=== PATIENT | male | born 1965 | race Caucasian/White ===

== ENCOUNTER 2022-09-27 14:23 | Emergency (ER) | payer BC, OTHER ==
[2022-09-27] MEDS ORDERED: LIDOCAINE 1% MPF 30 ML VIAL ONE (14:49)
--- NOTE | 2022-09-27 15:01 | EDPHYS ---
Physician Documentation [facility] Name: Russell Nunez Age: 57 yrs Sex: Male : 1965 Arrival Date: 09/27/2022 Time: 14:23 Bed 19 Private MD: ED Physician Matthew Sahu HPI: 09/27 14:50 This 57 yrs old Male presents to ER via Ambulatory with complaints of vericose bleeder. jr8 14:50 Onset: The symptoms/episode began/occurred acutely, today. Associated signs and jr8 symptoms: The patient has no apparent associated signs or symptoms. The patient has not experienced similar symptoms in the past. The patient has not recently seen a physician. Patient stated that he has swelling of the lower extremities often. Noticed that his veins bulge and some of the areas. While at the pool today was walking and nicked the side of his ankle causing immediate bleeding one of the veins. Tried to apply pressure which helped control it but still bleeding.. Historical: - Allergies: 14:39 Iodine; ld1 - PMHx: 14:39 Hypertensive disorder; ld1 - PSHx: 14:39 Right ankle surgery; ld1 - Immunization history:: Adult Immunizations up to date, Client reports receiving the 2nd dose of the Covid vaccine. - Social history:: Smoking status: Patient denies any tobacco usage or history of. Patient uses alcohol, occasionally. ROS: 14:50 Constitutional: Negative for fever, chills, and weight loss, Cardiovascular: Negative jr8 for chest pain, palpitations, and edema, Respiratory: Negative for shortness of breath, cough, wheezing, and pleuritic chest pain, MS/Extremity: Negative for deformity, Skin: Negative for injury, rash, and discoloration. Exam: 14:50 Constitutional: This is a well developed, well nourished patient who is awake, alert, jr8 and in no acute distress. Cardiovascular: Regular rate and rhythm with a normal S1 and S2. No gallops, murmurs, or rubs. Normal PMI, no JVD. No pulse deficits. Respiratory: Lungs have equal breath sounds bilaterally, clear to auscultation and percussion. No rales, rhonchi or wheezes noted. No increased work of breathing, no retractions or nasal flaring. Skin: Warm, dry with normal turgor. Normal color with no rashes, no lesions, and no evidence of cellulitis. Neuro: Awake and alert, GCS 15, oriented to person, place, time, and situation. Motor strength 5/5 in all extremities. Sensory grossly intact. 14:50 Musculoskeletal/extremity: Extremities: grossly normal except: noted in the right leg: Patient has small puncture site where the varicose bleeder is to the right lateral malleolus. When not pressurized has steady bleeding. No other trauma to the leg. Does have mild amount of standing nonpitting edema to the lower extremities bilaterally, ROM: no acute changes, Circulation is intact in all extremities. Sensation intact. Vital Signs: 14:39 BP 145 / 102; Pulse 85; Resp 18; Temp 98.8(O); Pulse Ox 100% on R/A; Pain 0/10; ld1 14:43 BP 145 / 102; Pulse 82; Resp 18; Temp 98.8(O); Pulse Ox 98% on R/A; Weight 120.2 kg; nj1 Height 6 ft. 0 in. ; Pain 0/10; 14:43 Body Mass Index 35.94 (120.20 kg, 182.88 cm) nj1 14:39 Pain Scale: Adult ld1 14:43 Pain Scale: Adult nj1 Laceration: 14:50 Wound Repair of Puncture to vein laceration to right leg. Distal neuro/vascular/tendon jr8 intact. Anesthesia: Local anesthetic administered with 1 mls of 1% lidocaine. Wound prep: Extensive cleansing with hibiclenz. Skin closed with 1 4-0 Prolene using [id number]. Patient tolerated well. MDM: 14:30 Patient medically screened. jr8 14:50 Data reviewed: vital signs, nurses notes. jr8 14:50 Counseling: I had a detailed discussion with the patient and/or guardian regarding: the rust historical points, exam findings, and any diagnostic results supporting the discharge/admit diagnosis, the need for outpatient follow up, a family practitioner, to return to the emergency department if symptoms worsen or persist or if there are any questions or concerns that arise at home. ED course: Discussed with patient that he has venous insufficiency causing varicosities. That making of those veins can cause significant bleeding which happened today. Patient got 1 suture to tie off the vein. Doing well at this time. Needs to follow-up with his primary care within 3 to 4 days for suture removal. If he cannot get into them to come back to the emergency room for reevaluation. Suggested otherwise to follow-up with primary care to see if they want him to see a vein specialist for stripping if it continues to be a problem. In the meantime suggested compression stockings and frequent elevation after his day to help with the swelling. Patient good with plan and will follow up.. Administered Medications: No medications were administered Disposition: 16:15 Co-signature as Attending Physician, Matthew Sahu MD I reviewed the patient's care rn provided by the Advanced Practice Provider and agree with the diagnosis and treatment plan. Disposition Summary: 09/27/22 15:01 Discharge Ordered Location: Home jr8 Problem: new jr8 Symptoms: have improved jr8 Condition: Stable jr8 Diagnosis - Venous insufficiency (chronic) (peripheral) jr8 - Puncture wound without foreign body, right ankle, initial encounter jr8 Followup: jr8 - With: Private Physician - When: 5 - 6 days - Reason: Wound Recheck, Recheck today's complaints, Continuance of care, Staple/Suture removal, Re-evaluation by your physician Discharge Instructions: - Discharge Summary Sheet jr8 - Chronic Venous Insufficiency jr8 Forms: - Medication Reconciliation Form jr8 - Thank You Letter jr8 - Antibiotic Education jr8 - Prescription Opioid Use jr8 Signatures: Matthew Sahu MD MD rn Roszak, Josh, PA PA jr8 Melodie Harris RN RN ld1 Corrections: (The following items were deleted from the chart) 14:39 14:39 Allergies: No Known Allergies; ld1 ld1
--- NOTE | 2022-09-27 15:01 | ER ---
Nurse's Notes [facility] Name: Russell Nunez Age: 57 yrs Sex: Male : 1965 Arrival Date: 09/27/2022 Time: 14:23 Bed 19 Private MD: Diagnosis: Venous insufficiency (chronic) (peripheral);Puncture wound without foreign body, right ankle, initial encounter Presentation: 09/27 14:43 Chief complaint: Patient states: Walking around the pool when I was told my ankle was nj1 bleeding, ever since he had ankle surgery on 2005 "my ankle swells if I over do it". Denies injury. Coronavirus screen: Vaccine status: Patient reports receiving the 2nd dose of the covid vaccine. Ebola Screen: Patient denies travel to an Ebola-affected area in the 21 days before illness onset. Complicating Factors: There are no complicating factors for this patient. Initial Sepsis Screen: Does the patient meet any 2 criteria? No. Patient's initial sepsis screen is negative. Does the patient have a suspected source of infection? No. Patient's initial sepsis screen is negative. Risk Assessment: Do you want to hurt yourself or someone else? Patient reports no desire to harm self or others. Onset of symptoms was September 27, 2022 at 13:30. 14:43 Method Of Arrival: Ambulatory banner 14:43 Acuity: LUCY 3 nj1 Triage Assessment: 15:35 General: Appears in no apparent distress. comfortable, Behavior is calm, cooperative, ld1 appropriate for age. Historical: - Allergies: 14:39 Iodine; ld1 - PMHx: 14:39 Hypertensive disorder; ld1 - PSHx: 14:39 Right ankle surgery; ld1 - Immunization history:: Adult Immunizations up to date, Client reports receiving the 2nd dose of the Covid vaccine. - Social history:: Smoking status: Patient denies any tobacco usage or history of. Patient uses alcohol, occasionally. Screenin:39 [facility] ED Fall Risk Assessment (Adult) History of falling in the last 3 months, ld1 including since admission No falls in past 3 months (0 pts). Abuse screen: Denies threats or abuse. Denies injuries from another. Nutritional screening: No deficits noted. Tuberculosis screening: No symptoms or risk factors identified. Assessment: 14:39 Reassessment: Patient is alert, oriented x 3, equal unlabored respirations, skin ld1 warm/dry/pink. See triage assessment. Patient denies pain at this time. Pain: Denies pain. Musculoskeletal: No signs and/or symptoms reported regarding the musculoskeletal system. 15:36 Injury Description: Laceration is clean. ld1 Vital Signs: 14:39 BP 145 / 102; Pulse 85; Resp 18; Temp 98.8(O); Pulse Ox 100% on R/A; Pain 0/10; ld1 14:43 BP 145 / 102; Pulse 82; Resp 18; Temp 98.8(O); Pulse Ox 98% on R/A; Weight 120.2 kg; nj1 Height 6 ft. 0 in. ; Pain 0/10; 14:43 Body Mass Index 35.94 (120.20 kg, 182.88 cm) nj1 14:39 Pain Scale: Adult ld1 14:43 Pain Scale: Adult nj1 ED Course: 14:24 Patient arrived in ED. mr 14:30 Gigi Hernandez PA is PHCP. jr 14:30 Matthew Sahu MD is Attending Physician. jr8 14:30 Patient placed in an exam room. nj1 14:39 Patient has correct armband on for positive identification. Placed in gown. Bed in low ld1 position. Call light in reach. Side rails up X2. telemetry monitor on. Pulse ox on. NIBP on. Door closed. Noise minimized. Warm blanket given. 14:47 Triage completed. nj1 15:35 Melodie Harris, RN is Primary Nurse. ld1 15:35 Assist provider with laceration repair on right foot using sutures. Set up tray. ld1 Performed by Gigi BAILEY. Patient did not have IV access during this emergency room visit. Administered Medications: No medications were administered Medication: 14:39 VIS not applicable for this client. ld1 Outcome: 15:01 Discharge ordered by . nivia 15:36 Discharged to home ambulatory, with family. ld1 15:36 Condition: stable 15:36 Discharge instructions given to patient, family, Instructed on discharge instructions, follow up and referral plans. Demonstrated understanding of instructions, follow-up care. 15:36 Patient left the ED. ld1 Signatures: Ximena Dixon mr Gigi Hernandez PA PA Melodie Frias, RN RN ld1 Latoya Medrano RN RN nj1 Corrections: (The following items were deleted from the chart) 14:39 14:39 Allergies: No Known Allergies; ld1 ld1 14:48 14:43 Chief complaint: Patient states: Walking around the pool when I was told my ankle nj1 was bleeding, ever since he had ankle surgery on 2005 "my ankle swells if I over do it". Denies injury. nj1
[2022-09-27 15:53] VITALS: BP 145/102; TEMP 98.8
[2022-09-27 15:55] VITALS: O2SAT 98
== END 2022-09-27 15:36 | disposition home or self-care (01) ==
LOC: ER 14:23
PROC: 0HQMXZZ Repair Right Foot Skin, External Approach (ICD-10-PCS; principal; 2022-09-27)
DX: S91.031A Puncture wound without foreign body, right ankle, initial encounter (principal); I87.2 Venous insufficiency (chronic) (peripheral); I10 Essential (primary) hypertension; Z91.048 Other nonmedicinal substance allergy status
CPT/HCPCS: 99284; 12001; J2001